=== PATIENT | female | born 1940 | race Caucasian/White ===

== ENCOUNTER → 2017-04-14 | Outpatient (CLI) | payer OTHER, MEDICAID ==
[~2017-04-14] MED LIST: AGGRENOX CAPSU1 EACH PO; ASPIR 8181 MG PO; CEPHALEXIN 500500 M3 PO; COREG; Coreg; HCTZ; LEVAQUIN 500 M500 M2 PO; LEVOXYL; LISINOPRIL10 MG PO; Levothyroxine PO; NORCO 5-325 TA1 EACH PO; NORVASC5 MG PO; XANAX 0.5 MG0.5 MG PO; ZESTRIL; Zestril
== END ==
LOC: M.ULTRA 07:30
DX: K80.20 Calculus of gallbladder without cholecystitis without obstruction (principal); N28.1 Cyst of kidney, acquired; K43.2 Incisional hernia without obstruction or gangrene

== ENCOUNTER → 2017-04-21 | Outpatient (CLI) | payer OTHER, MEDICAID | LOC: M.ULTRA 13:30 | DX: N28.1 Cyst of kidney, acquired (principal) ==

== ENCOUNTER 2018-08-24 09:55 | Inpatient (IN) | payer OTHER, MEDICAID ==
[~2018-08-24] VITALS: Ht 152.4 cm; Wt 111.1 kg
[2018-08-24] MEDS ORDERED: CARVEDILOL12.5 MG PO (10:03)
[2018-08-24] MEDS ORDERED: CHLORTHALIDONE25 MG PO (10:04)
[2018-08-24] MEDS ORDERED: LISINOPRIL20 MG PO (10:05)
[2018-08-24] MEDS ORDERED: LEVOTHYROXINE100 MCG PO (10:06)
[2018-08-24] MEDS ORDERED: OLOPATADINE HC2.5 ML OPHTHALMIC (10:06)
[2018-08-24 10:16] LABS: ABSOLUTE EOSINOPHILS 0.2 thou/uL (0.0-0.7); ABSOLUTE LYMPHOCYTES 1.5 thou/uL (0.8-5.3); ABSOLUTE MONOCYTES 0.5 thou/uL (0.0-1.2); ABSOLUTE NEUTROPHILS 3.2 thou/uL (1.6-8.1); BASOPHILS 0.9 %; EOSINOPHILS 3.1 %; HEMATOCRIT 43.7 % (37.0-47.0); HEMOGLOBIN 14.3 gm/dL (12.0-15.0); LYMPHOCYTES 28.1 %; MCH 27.9 pg (26.0-34.0); MCHC 32.7 g/dL (28.0-37.0); MCV 85.3 fL (80.0-100.0); MPV 10.2 fl. (7.2-11.1); NUCLEATED RBCS 0 /100WBC; PLATELET COUNT* 152 thou/uL (150-400); POLYS 58.9 %; RBC 5.12 mil/uL (4.20-5.00); RDW-CV 14.4 % (10.5-14.5); WBC 5.5 thou/uL (4.0-11.0)
[2018-08-24 10:22] LABS: APTT 27.4 Seconds (25.0-31.3); INR 1.1; PROTIME 10.9 Seconds (9.20-11.50)
[2018-08-24 10:25] LABS: ANION GAP 9 mmol/L (7-16); BUN 27 mg/dL (7-18); CALCIUM 9.1 mg/dL (8.5-10.1); CHLORIDE 105 mmol/L (98-107); CO2 28 mmol/L (21-32); CREATININE 1.4 mg/dL (0.6-1.3); GLUCOSE 113 mg/dL (70-99); POTASSIUM 3.9 mmol/L (3.5-5.1); SODIUM 142 mmol/L (136-145)
[2018-08-24 10:38] LABS: ALBUMIN 3.7 g/dL (3.4-5.0); ALKALINE PHOSPHATASE 39 U/L (46-116); LIPASE 249 U/L (73-393); NT-PRO BRAIN NAT PEPTIDE 993 pg/mL (<300); SGOT 19 U/L (15-37); SGPT 23 U/L (30-65); TOTAL BILIRUBIN 0.7 mg/dL (<0.1-1.0); TROPONIN-I LEVEL <0.06 ng/mL (<0.06)
--- NOTE | 2018-08-24 16:16 | EXE ---
[place] [address] STRESS ECHOCARDIOGRAM Name: ELMER TUCKER I Room: [facility]#: [id number] Admission: 08/24/18 Attend Phys: Discharge: Date of : 38 Date of Service: 08/24/18 1616 Report #: [id number] THIS REPORT FOR: //name// APPROVED REPORT Study performed: 08/24/2018 14:36:28 Exam: Dobutamine Stress Echo Indication: Chest pain Patient Location: ER Stress Nurse: Sierra Avelar RN Supervising Physician: Sudarshan Jessica MD Status: routine Ht: 5 ft 0 in HR: 57 bpm BP: 147/91 mmHg Rhythm: NSR Medical History Medical History: Stroke/TIA Medications: Carvedilol, Lisinopril, Amlodipine, ASA Allergies: Hydrocodone Cardiac Risk Factors: Hyperlipidemia, HTN, PVD, FHX of CAD Previous Cardiac Procedures: CABG Procedure The patient underwent a Pharmacological Stress Test using Dobutamine. Blood pressure, heart rate, and EKG were monitored. An Echocardiogram was performed by auto body technician in four stages in quad fashion. At peak stress, four selected images were obtained and placed side by side with resting images for comparison. Stress Test Details Stress Test: Pharmacological Stress Test using Dobutamine. Reason for pharmacologic stress test: physical limitation. HR Resting HR: 57 bpm Max Heart Rate (APMHR): 142 bpm Max HR Achieved: 124 bpm Target HR (85% APMHR): 120 bpm % of APMHR: 87 Recovery HR: 80 bpm HR response to stress: Normal HR response to stress BP Resting BP: 147/[place] [address] STRESS ECHOCARDIOGRAM Name: ELMER TUCKER I Room: [facility]#: [id number] Admission: 08/24/18 Attend Phys: Discharge: Date of : 38 Date of Service: 08/24/18 1616 Report #: [id number] Max BP: 183/79 mmHg Recovery BP: 159/97 mmHg BP response to stress: Normal blood pressure response to stress. ECG Resting ECG: Sinus Rhythm mild IVCD Stress ECG: Sinus Rhythm, brief NSVT at peak infusion resolved infusion ST Change: Normal Arrhythmia: None Recovery ECG: Sinus Rhythm Recovery ST Change: Normal Recovery Arrhythmia: None Clinical Reason for Termination: Completed protocol Stress Symptoms: none Stress ECG Conclusion brief NSVT rate 130s, resolved spontaneously, no diagnostic ECG changes Pre-Stress Echo The resting Echocardiogram showed normal left ventricular contractility with an estimated Ejection Fraction of about 55-60%. Mild tricuspid and mitral regurgitation. Mild Pulmonary hypertension Baseline basolateral hypokinesis,mild Post-Stress Echo LV chamber size decreases, LV ejection fraction increases, no new wall motion abnormalities are seen.The inferolateral segment fails to augment appropriately. Conclusion Clinical Response: Non-ischemic Exercise Capacity: n/a Stress ECG Response: Non-ischemic Stress Echo Images: Non-ischemic This pharmacologic stress echo is abnormal. There is evidence of prior moderate sized inferolateral OH. This wall motion abnormality failed to augment appropriately .Consideration for completed infarction or resting ischemia . Other Information Study Quality: [place] [address] STRESS ECHOCARDIOGRAM Name: ELMER TUCKER I Room: [facility]#: [id number] Admission: 08/24/18 Attend Phys: Discharge: Date of : 38 Date of Service: 08/24/18 161 Report #: [id number] <Conclusion> This pharmacologic stress echo is abnormal. There is evidence of prior moderate sized inferolateral OH. This wall motion abnormality failed to augment appropriately .Consideration for completed infarction or resting ischemia . <ELECTRONICALLY SIGNED> By: Reg Headley MD, FACC 08/24/181615 15 15 Reg Headley MD, FACC /INF
--- NOTE | 2018-08-24 16:32 | EKG ---
[place] [address] ELECTROCARDIOGRAM REPORT Name: ELMER TUCKER Daniel Room: [facility]#: [id number] Admission: 08/24/18 Attend Phys: Discharge: Date of : 38 Report #: [id number] THIS REPORT FOR: //name// [facility] ED Test Date: 2018-08-24 Test Time: 10:00:40 Pat Name: ELMER TUCKER Department: Room: Gender: F Seat Maker: : 1940 Requested By: Dano Seals Order Number: [id number] MD: Sudarshan Jessica Measurements Intervals [place] Rate: 54 P: 52 MT: 174 QRS: -38 QRSD: 120 T: 136 QT: 465 QTc: 441 Interpretive Statements Sinus bradycardia Nonspecific IVCD with LAD LVH with secondary repolarization abnormality Inferior infarct, old Anterior infarct, old Baseline wander in lead(s) V3,V4,V5,V6 Compared to ECG 06/20/2016 10:37:54 Intraventricular conduction delay now present Myocardial infarct finding still present Electronically Signed On 08-24-2018 16:31:50 CDT by Sudarshan Jessica [email or web address] <ELECTRONICALLY SIGNED> By: Sudarshan Jessica MD, [facility] 08/24/18 1631 1000 1000 Sudarshan Jessica MD, [facility] /EPI
[2018-08-24 21:07] VITALS: BP 182/75
[2018-08-25 00:45] VITALS: BP 130/56
[2018-08-25 01:56] LABS: CHOLESTEROL 268 mg/dL (<200); HDL CHOLESTEROL 42 mg/dL (>40); LDL CHOLESTEROL 188 mg/dL (<100); SERUM ASSESSMENT Clear; TC:HDL 6.4 Ratio (Not establshd); TRIGLYCERIDE 191 mg/dL (<150); TROPONIN-I LEVEL 0.07 ng/mL (<0.06); VLDL 38 mg/dL (<40)
[2018-08-25 04:45] VITALS: BP 151/66
[2018-08-25 04:58] LABS: ABSOLUTE EOSINOPHILS 0.1 thou/uL (0.0-0.7); ABSOLUTE LYMPHOCYTES 1.7 thou/uL (0.8-5.3); ABSOLUTE MONOCYTES 0.4 thou/uL (0.0-1.2); ABSOLUTE NEUTROPHILS 3.2 thou/uL (1.6-8.1); BASOPHILS 0.8 %; EOSINOPHILS 2.4 %; HEMATOCRIT 43.8 % (37.0-47.0); HEMOGLOBIN 14.5 gm/dL (12.0-15.0); LYMPHOCYTES 30.5 %; MCH 28.1 pg (26.0-34.0); MCV 85.2 fL (80.0-100.0); MONOCYTES 8.3 %; MPV 10.4 fl. (7.2-11.1); NUCLEATED RBCS 0 /100WBC; PLATELET COUNT* 144 thou/uL (150-400); RBC 5.14 mil/uL (4.20-5.00); RDW-CV 14.6 % (10.5-14.5); WBC 5.4 thou/uL (4.0-11.0)
[2018-08-25 05:16] LABS: ALBUMIN 3.5 g/dL (3.4-5.0); CALCIUM 9.3 mg/dL (8.5-10.1); CREATININE 1.3 mg/dL (0.6-1.3); POTASSIUM 3.7 mmol/L (3.5-5.1); TOTAL BILIRUBIN 0.7 mg/dL (<0.1-1.0); TOTAL PROTEIN 6.3 g/dL (6.4-8.2); TROPONIN-I LEVEL 0.07 ng/mL (<0.06)
[2018-08-25 08:00] VITALS: BP 183/81
[2018-08-25 12:00] VITALS: BP 161/67
[2018-08-25 14:05] VITALS: BP 161/67
[2018-08-25] MEDS ORDERED: LIPITOR 20 MG T20 M1 PO (14:16)
[2018-08-25 14:37] VITALS: BP 145/73
--- NOTE | 2018-08-26 16:34 | CON ---
[address] [address] CONSULTATION Name: ELMER TUCKER Daniel Room: [address] IN ..#: [id number] Admission: 08/24/18 Attend Phys: Rosa Mejia Discharge: 08/25/18 Date of : 38 Report #: [id number] THIS REPORT FOR: //name// CC: XOCHILT Huerta DATE OF SERVICE: 08/24/2018 CARDIOLOGY CONSULTATION HISTORY OF PRESENT ILLNESS: The patient is a 77-year-old single white female who I was asked to see in the Emergency Room today after she complained of chest pain. The patient has an extensive past medical history. Unfortunately, most of her records are not available. She states in 2007, she was noted to have elevated blood pressure. 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 She has been followed by Dr. Chacon since that time as well as Dr. Chester in the Cardiology Clinic. She has not had a stress test over the past few years. She is not very active at this time. She was doing well until last night about 10:00, she was lying in a chair when she felt a pressure in chest, lasted about 15 minutes, resolved. There is no radiation of the pain. No associated shortness of breath, diaphoresis, or nausea. She went to bed last night. She woke up this morning and again felt a pressure in chest. It lasted about 15 minutes, resolved. She did take some antacids. There is no radiation of the pain associated with shortness of breath, diaphoresis, nausea. The pain was not related to food. She has had no recent trauma to her chest or bleeding. She had a recent cough. She drove herself to the Emergency Room and I was asked to see her for further evaluation and treatment. She does note exertional dyspnea and edema. She has had no palpitations or syncope. She has had a recent trauma to her chest. The pain was not related to lifting. PAST MEDICAL HISTORY: She has had a previous hip surgery. She had an ovary removed. She had previous left carotid endarterectomy. She has a history of hypertension. No history of diabetes. MEDICATIONS: Consists of carvedilol, chlorthalidone, lisinopril, Synthroid, aspirin, amlodipine. ALLERGIES: SHE HAS INTOLERANCE TO HYDROCODONE. FAMILY HISTORY: Heart disease runs in the family. SOCIAL HISTORY: , lives with herself in [place]. [place] [address] CONSULTATION Name: ELMER TUCKER I Room: [address]#: [id number] Admission: 08/24/18 Attend Phys: Rosa Mejia Discharge: 08/25/18 Date of : 38 Report #: [id number] REVIEW OF SYSTEMS: She is overweight, standing 5 feet tall and weighing 225 pounds. She recently had a sleep study, has possible sleep apnea. She is not using CPAP. She has no history of asthma, peptic ulcer disease, liver disease, kidney disease, cancer, psychiatric illness, chronic skin condition. PHYSICAL EXAMINATION: GENERAL: Revealed obese elderly female lying in bed. She appeared in no distress. VITAL SIGNS: She had a blood pressure of 120/70, pulse is 60. HEENT: She was anicteric, conjunctivae pink. Mucous members moist. NECK: Veins are nondistended. Neck was supple. CHEST: Clear to auscultation. CARDIOVASCULAR: Regular rate and rhythm. ABDOMEN: Obese. EXTREMITIES: Had trace edema. SKIN: Cool and dry. NEUROLOGIC: Nonfocal. LYMPH: No adenopathy. MUSCULOSKELETAL: No joint effusion. LABORATORY DATA: ECG shows a sinus rhythm, left axis, nonspecific T-wave changes. Her workup, she actually had an echocardiogram in 2017 here at [facility] that showed left ventricular hypertrophy, ejection fraction 60%, left atrial enlargement, aortic sclerosis. Her x-rays, she had a portable chest x-ray that showed normal heart size, clear lung lozano. Her lab work, sodium 142, BUN 27, creatinine 1.4, glucose 113. Liver function studies were normal. Troponin 0.06. BNP 993. Previous TSH was 3.5. White blood cell count 5.5, hemoglobin 14.3. IMPRESSION AND RECOMMENDATIONS: 1. Chest pain. No evidence of acute myocardial infarction. Recommend stress echocardiogram. I would hold her beta shantelle. 2. Previous coronary artery bypass surgery. 3. Previous carotid endarterectomy. 4. Hypertension. The patient is on a beta shantelle and CHITO inhibitor. 5. Obesity. 6. Sleep apnea. The patient is not on CPAP at this time. <ELECTRONICALLY SIGNED> By: Sudarshan Jessica MD, FACC 08/26/18 1634 1134 [id number] Jessica MD, FAC /nt
--- NOTE | 2018-08-27 13:26 | EKG ---
[place] [address] ELECTROCARDIOGRAM REPORT Name: YAHAIRA TUCKERMiquel Sanchez Room: [place] [address] DIS IN M.R.#: [id number] Admission: 08/24/18 Attend Phys: Rosa Mejia Discharge: 08/25/18 Date of : 38 Report #: [id number] THIS REPORT FOR: //name// [facility] ED Test Date: 2018-08-24 Test Time: 23:01:46 Pat Name: ELMER UTCKER Department: Room: [place] [address] Gender: F Global President: : 1940 Requested By: Dano Seals Order Number: [id number] Jaya MD: Hira Gray Measurements Intervals [place] Rate: 56 P: 66 SC: 182 QRS: -32 QRSD: 119 T: 137 QT: 479 QTc: 463 Interpretive Statements Sinus rhythm Ventricular premature complex Probable left atrial enlargement LVH with secondary repolarization abnormality Inferior infarct, old Anterior infarct, old possible Compared to ECG 08/24/2018 10:00:40 Ventricular premature complex(es) now present Sinus bradycardia no longer present Myocardial infarct finding still present Electronically Signed On 08-27-2018 13:26:28 CDT by Hira Gray [email or web address] <ELECTRONICALLY SIGNED> By: Hira Gray MD, [facility] 08/27/18 1326 00 00 Hira Gray MD, [facility] /EPI
--- NOTE | 2018-08-27 13:27 | EKG ---
[place] [address] ELECTROCARDIOGRAM REPORT Name: ELMER TUCKER Daniel Room: [place] [address] DIS IN M.R.#: [id number] Admission: 08/24/18 Attend Phys: Rosa Mejia Discharge: 08/25/18 Date of : 38 Report #: [id number] THIS REPORT FOR: //name// [facility] ED Test Date: 2018-08-25 Test Time: 04:50:21 Pat Name: ELMER TUCKER Department: Room: [place] [address] Gender: F Potato Bucker: KRISTI : 1940 Requested By: Sudarshan Jessica Order Number: [id number] Jaya MD: Hira Gray Measurements Intervals [place] Rate: 56 P: 48 [place]: 189 QRS: -35 QRSD: 119 T: 134 QT: 497 QTc: 480 Interpretive Statements Sinus rhythm LVH with secondary repolarization abnormality Inferior infarct, old Anterior infarct, old Compared to ECG 08/24/2018 10:00:40 Sinus bradycardia no longer present Myocardial infarct finding still present Electronically Signed On 08-27-2018 13:27:12 CDT by Hira Gray [email or web address] <ELECTRONICALLY SIGNED> By: Hira Gray MD, [facility] 08/27/18 1327 0450 0450 Hiar Gray MD, [facility] /EPI
== END 2018-08-25 14:39 | disposition still patient (30) | DRG 305 ==
LOC: M.ERS 09:55 → M.TBA-ER 16:45
PROVIDERS: Emergency Medicine; Emergency Medicine Emergency Medical Services; Internal Medicine Cardiovascular Disease; ADMIT Internal Medicine
DX: I13.10 Hypertensive heart and chronic kidney disease without heart failure, with stage 1 through stage 4 chronic kidney disease, or unspecified chronic kidney disease (principal); I24.9 Acute ischemic heart disease, unspecified; Z68.42 Body mass index [BMI] 45.0-49.9, adult; N18.3 Chronic kidney disease, stage 3 (moderate); E03.9 Hypothyroidism, unspecified; E66.9 Obesity, unspecified; G47.30 Sleep apnea, unspecified; Z86.73 Personal history of transient ischemic attack (TIA), and cerebral infarction without residual deficits; Z79.899 Other long term (current) drug therapy; Z79.82 Long term (current) use of aspirin; Z88.6 Allergy status to analgesic agent; Z95.1 Presence of aortocoronary bypass graft

== ENCOUNTER 2018-11-09 14:15 | Emergency (ER) | payer OTHER, MEDICAID ==
[~2018-11-09] VITALS: Ht 147.3 cm; Wt 104.3 kg
[~2018-11-09 14:15] MED LIST changes: +CARVEDILOL12.5 MG PO; +CHLORTHALIDONE25 MG PO; +LEVOTHYROXINE100 MCG PO; +LIPITOR 20 MG T20 M1 PO; +LISINOPRIL20 MG PO; +OLOPATADINE HC2.5 ML OPHTHALMIC
[2018-11-09 14:53] LABS: ABSOLUTE BASOPHILS 0.1 thou/uL (0.0-0.2); ABSOLUTE EOSINOPHILS 0.1 thou/uL (0.0-0.7); ABSOLUTE LYMPHOCYTES 1.6 thou/uL (0.8-5.3); ABSOLUTE MONOCYTES 0.5 thou/uL (0.0-1.2); ABSOLUTE NEUTROPHILS 3.3 thou/uL (1.6-8.1); EOSINOPHILS 2.6 %; MCHC 33.2 g/dL (28.0-37.0); MCV 87.2 fL (80.0-100.0); MONOCYTES 8.6 %; MPV 9.1 fl. (7.2-11.1); NUCLEATED RBCS 0 /100WBC; PLATELET COUNT* 160 thou/uL (150-400); POLYS 58.8 %; RBC 4.82 mil/uL (4.20-5.00); RDW-CV 14.6 % (10.5-14.5); WBC 5.6 thou/uL (4.0-11.0)
[2018-11-09 15:06] LABS: ANION GAP 8 mmol/L (7-16); BUN 24 mg/dL (7-18); CALCIUM 8.9 mg/dL (8.5-10.1); CHLORIDE 104 mmol/L (98-107); CO2 28 mmol/L (21-32); CREATININE 1.3 mg/dL (0.6-1.3); GLUCOSE 101 mg/dL (70-99); SODIUM 140 mmol/L (136-145)
[2018-11-09 15:11] LABS: ALBUMIN 3.6 g/dL (3.4-5.0); ALKALINE PHOSPHATASE 39 U/L (46-116); NT-PRO BRAIN NAT PEPTIDE 1460 pg/mL (<300); SGOT 22 U/L (15-37); SGPT 29 U/L (30-65); TOTAL BILIRUBIN 0.5 mg/dL (<0.1-1.0); TOTAL PROTEIN 6.8 g/dL (6.4-8.2); TROPONIN-I LEVEL <0.06 ng/mL (<0.06)
[2018-11-09] MEDS ORDERED: VISTARIL 25 MG25 M1 PO (16:12)
[2018-11-09 16:41] VITALS: BP 172/87
--- NOTE | 2018-11-09 20:16 | EKG ---
[place] [address] ELECTROCARDIOGRAM REPORT Name: ELMER TUCKER Daniel Room: [facility]#: [id number] Admission: 11/09/18 Attend Phys: Discharge: 11/09/18 Date of : 38 Report #: [id number] THIS REPORT FOR: //name// [facility] ED Test Date: 2018-11-09 Test Time: 14:39:08 Pat Name: ELMER TUCKER Department: Room: Gender: F Shop Manager: CAMILLA : 1940 Requested By: Dano Seals Order Number: [id number] MD: Skinny Abbott Measurements Intervals [place] Rate: 56 P: 53 TN: 177 QRS: -35 QRSD: 123 T: 131 QT: 482 QTc: 466 Interpretive Statements Sinus rhythm Nonspecific intraventricular conduction delay Probable inferior infarct, recent Probable anterolateral infarct, age indeterm Compared to ECG 08/25/2018 04:50:21 Intraventricular conduction delay now present Left ventricular hypertrophy no longer present Early repolarization no longer present Myocardial infarct finding still present Electronically Signed On 11-09-2018 20:15:57 CDT by Skinny Abbott [email or web address] <ELECTRONICALLY SIGNED> By: Cory Abbott MD, [facility] 11/09/182014 1439 1439 Cory Abbott MD, [facility] /EPI
== END 2018-11-09 16:41 | disposition home or self-care (01) ==
LOC: M.ERS 14:15
PROVIDERS: Emergency Medicine Emergency Medical Services
DX: F41.9 Anxiety disorder, unspecified (principal); I10 Essential (primary) hypertension; E03.9 Hypothyroidism, unspecified; Z95.1 Presence of aortocoronary bypass graft; Z86.73 Personal history of transient ischemic attack (TIA), and cerebral infarction without residual deficits; Z86.018 Personal history of other benign neoplasm; Z88.5 Allergy status to narcotic agent